=== PATIENT | female | born 1945 | race Hispanic/Latino ===

== ENCOUNTER 2018-08-19 21:38 | Emergency (ER) | payer OTHER ==
[2018-08-19 22:11] LABS: APPEARANCE,URINE Clear (CLEAR); BILIRUBIN,URINE Negative (NEGATIVE); COLOR,URINE Yellow (YELLOW); GLUCOSE, URINE (UA) Negative (NEGATIVE); KETONES,URINE Negative (NEGATIVE); LEUKOCYTE ESTERASE ,URINE Negative (NEGATIVE); NITRATE,URINE Negative (NEGATIVE); OCCULT BLOOD,URINE Trace (NEGATIVE); PROTEIN,URINE Negative (NEGATIVE); UROBILINOGEN,URINE 0.2 mg/dL (0.2-1.0)
[2018-08-19 22:16] LABS: RAPID GROUP A STREP NEGATIVE (NEGATIVE)
[2018-08-19] MEDS ORDERED: IPRATROPIUM/ALBUTEROL SULFATE 3 ML SOLUTION IH ONE (22:16)
[2018-08-19] MEDS ORDERED: ACETAMINOPHEN EXTRA STRENGTH 500 MG TABLET ONE (22:19)
[2018-08-19] MEDS ORDERED: SODIUM CHLORIDE 0.9% 1000ML 2,000 ML IV ONE (22:19)
[2018-08-19 22:21] LABS: RBC,URINE 0-1 /HPF (0-1); WBC,URINE 0-1 /HPF (0-1)
[2018-08-19 22:21] LABS: BASOPHILS % (AUTO) 0.3 % (0.0-5.0); EOSINOPHILS % (AUTO) 0.7 % (0.0-8.0); HEMATOCRIT 37.4 % (36-48); LYMPHOCYTES % (AUTO) 12.5 % (21.0-51.0); MEAN CORPUSCULAR HEMOGLOBIN 32.3 pg (27.0-33.0); MEAN CORPUSCULAR HGB CONC 33.7 g/dL (32.0-36.0); MEAN CORPUSCULAR VOLUME 95.8 fL (79-99); MONOCYTES % (AUTO) 11.5 % (3.0-13.0); PLATELET COUNT (AUTO) 296 K/uL (130-400); RED BLOOD CELL COUNT(AUTO) 3.91 MIL/uL (4.00-5.50); RED CELL DISTRIBUTION WIDTH 13.5 % (11.0-15.5); WHITE BLOOD COUNT (AUTO) 12.2 K/uL (4.8-10.8)
[2018-08-19 22:22] LABS: BACTERIA,URINE None Seen /HPF (None Seen); SQUAMOUS EPITHELIAL CELL,UR 0-2 /HPF (0-2)
[2018-08-19 22:26] LABS: CARBON DIOXIDE 25 mmol/L (21-32); CHLORIDE 105 mmol/L (101-111); GLOMERULAR FILTR. RATE CALC 58 mL/min (>60); GLUCOSE,RANDOM 121 mg/dL (70-105); POTASSIUM 3.6 mmol/L (3.5-5.1); SODIUM SERUM 141 mmol/L (136-145); UREA NITROGEN, BLOOD 17 mg/dL (7-18)
[2018-08-19 22:37] LABS: ALANINE AMINOTRANSFERASE 40 U/L (12-78); ALBUMIN 3.1 g/dL (3.5-5.0); ASPARTATE AMINOTRANSFERASE 45 U/L (10-37); BILIRUBIN,TOTAL 0.7 mg/dL (0.2-1.0); CREATINE KINASE, TOTAL 99 U/L (21-232); MYOGLOBIN 28 ng/mL (10-92); TROPONIN I < 0.04 ng/mL (0.00-0.06)
[2018-08-19] MEDS ORDERED: METHYLPREDNISOLONE SOD SUCC 125MG/2ML VIAL ONE (23:16)
[2018-08-19] MEDS ORDERED: CEFTRIAXONE SODIUM 1 GM ONE (23:26)
[2018-08-19] MEDS ORDERED: SODIUM CHLORIDE 0.9% 500ML 500 ML IV ONE (23:26)
== END 2018-08-20 01:32 | disposition home or self-care (01) ==
LOC: EDH 21:38
DX: J20.9 Acute bronchitis, unspecified (principal); I10 Essential (primary) hypertension; E78.5 Hyperlipidemia, unspecified; K21.9 Gastro-esophageal reflux disease without esophagitis
CPT/HCPCS: 36415; 71045; 80053; 81001; 82550; 83605; 83874; 84484; 85025; 87040 ×2; 87088; 87804 ×2; 87880; 93005; 94640; 96374; 96375; 99284; J0696; J2930; J7030; J7040

== ENCOUNTER → 2019-02-22 | Outpatient (CLI) | payer OTHER ==
[~2019-02-22] MED LIST: ALBU8.5H8 IH; AMLO5TAB9 PO; APIX5TAB PO; DOXY100T2 PO; MONT10TA24 PO; PANT40TA25 PO; PRAV40TA3 PO; PRED10B PO
[2019-02-22 15:08] LABS: CREATININE 0.9 mg/dL (0.5-1.5)
== END | disposition home or self-care (01) ==
LOC: LAB 14:09
PROVIDERS: ATTEND Internal Medicine
DX: J44.9 Chronic obstructive pulmonary disease, unspecified (principal); J91.8 Pleural effusion in other conditions classified elsewhere
CPT/HCPCS: 36415; 82565; 84520

== ENCOUNTER 2021-04-24 10:45 | Emergency (ER) | payer OTHER ==
[~2021-04-24] VITALS: Ht 154.9 cm; Wt 88.9 kg
[~2021-04-24 10:45] MED LIST changes: +AMLO-257 PO; -AMLO5TAB9 PO; -MONT10TA24 PO; +MONT10TA32 PO; -PANT40TA25 PO; +PANT40TA54 PO
[2021-04-24 10:46] VITALS: BP 152/73
[2021-04-24] MEDS ORDERED: PROMETHAZINE HCL 25 MG/ML 1ML AMPULE IM ONE ×2 (10:46→13:30)
[2021-04-24] MEDS ORDERED: PRAV20TA4 PO (11:53)
[2021-04-24] MEDS ORDERED: PANT20TA18 PO (11:53)
[2021-04-24] MEDS ORDERED: CETI10TA57 PO (11:53)
[2021-04-24] MEDS ORDERED: OLME-7 PO (11:53)
[2021-04-24] MEDS ORDERED: MEPERIDINE-PF 25 MG/ML SYG ONE (13:18)
[2021-04-24] MEDS ORDERED: MEPERIDINE-PF 25 MG/ML SYG IM ONE (13:30)
[2021-04-24] MEDS ORDERED: ACET1TAB25 PO (13:30)
== END 2021-04-24 14:22 | disposition home or self-care (01) ==
LOC: EDH 10:45
DX: S30.0XXA Contusion of lower back and pelvis, initial encounter (principal); S39.012A Strain of muscle, fascia and tendon of lower back, initial encounter; I10 Essential (primary) hypertension; E78.00 Pure hypercholesterolemia, unspecified; Z79.01 Long term (current) use of anticoagulants; Z79.899 Other long term (current) drug therapy; W01.0XXA Fall on same level from slipping, tripping and stumbling without subsequent striking against object, initial encounter; Y93.89 Activity, other specified; Y92.89 Other specified places as the place of occurrence of the external cause; Y99.8 Other external cause status
CPT/HCPCS: 72192; 73502; 96372 ×2; 99284; J2175; J2550

== ENCOUNTER 2022-10-04 07:33 | Emergency (ER) | payer OTHER ==
[~2022-10-04] VITALS: Ht 160 cm; Wt 89.8 kg
[~2022-10-04 07:33] MED LIST changes: +ACET-2079 PO; -ALBU8.5H8 IH; -APIX5TAB PO; +CETI10TA57 PO; -DOXY100T2 PO; +MONT-39 PO; -MONT10TA32 PO; +OLME-7 PO; +PANT20TA18 PO; -PANT40TA54 PO; +PRAV20TA4 PO; -PRAV40TA3 PO; -PRED10B PO
[2022-10-04] MEDS ORDERED: MECLIZINE HCL 25 MG TABLET PO ONE (08:00)
[2022-10-04] MEDS ORDERED: DIPH,PERTUSS(ACELL),TET VAC/PF 0.5 ML VIAL IM ONE (08:00)
[2022-10-04] MEDS ORDERED: ONDANSETRON ODT 4MG TAB SL ONE (08:00)
[2022-10-04 09:14] LABS: BASOPHILS % (AUTO) 0.3 % (0.0-5.0); EOSINOPHILS % (AUTO) 0.1 % (0.0-8.0); HEMATOCRIT 40.4 % (36-48); LYMPHOCYTES % (AUTO) 5.6 % (21.0-51.0); MEAN CORPUSCULAR HEMOGLOBIN 31.8 pg (27.0-33.0); MEAN CORPUSCULAR HGB CONC 33.9 g/dL (32.0-36.0); MEAN CORPUSCULAR VOLUME 93.7 fL (79-99); MONOCYTES % (AUTO) 3.5 % (3.0-13.0); NEUTROPHILS % (AUTO) 90.2 % (40.0-77.0); PLATELET COUNT (AUTO) 224 K/uL (130-400); RED BLOOD CELL COUNT(AUTO) 4.31 MIL/uL (4.00-5.50); RED CELL DISTRIBUTION WIDTH 13.2 % (11.0-15.5); WHITE BLOOD COUNT (AUTO) 13.6 K/uL (4.8-10.8)
[2022-10-04 09:26] LABS: CREATININE 0.9 mg/dL (0.5-1.5); POTASSIUM 3.9 mmol/L (3.5-5.1)
[2022-10-04] MEDS ORDERED: LIDOCAINE HCL 1% 20 ML VIAL ONE (09:27)
[2022-10-04 09:30] LABS: ALBUMIN 3.6 g/dL (3.5-5.0); TOTAL PROTEIN, SERUM 7.2 g/dL (6.0-8.3)
[2022-10-04] MEDS ORDERED: LIDOCAINE HCL 1% 20 ML VIAL IV SCH (09:30)
[2022-10-04] MEDS ORDERED: LIDOCAINE 1%-EPI 1:100,000 20 ML VIAL IJ SCH (09:30)
[2022-10-04] MEDS ORDERED: LIDOCAINE HCL 1% 20 ML VIAL INJ ONE (09:30)
[2022-10-04] MEDS ORDERED: TRAM50TA4 PO (09:45)
[2022-10-04] MEDS ORDERED: NAPR-1180 PO (09:45)
[2022-10-04 09:50] VITALS: BP 144/66
== END 2022-10-04 10:06 | disposition home or self-care (01) ==
LOC: EDH 07:33
DX: S01.112A Laceration without foreign body of left eyelid and periocular area, initial encounter (principal); S20.212A Contusion of left front wall of thorax, initial encounter; I10 Essential (primary) hypertension; E78.00 Pure hypercholesterolemia, unspecified; Z79.899 Other long term (current) drug therapy; Z98.890 Other specified postprocedural states; W06.XXXA Fall from bed, initial encounter; Y93.89 Activity, other specified; Y92.89 Other specified places as the place of occurrence of the external cause; Y99.8 Other external cause status
CPT/HCPCS: 12013; 36415; 70450; 71101; 72125; 80053; 85025; 90471; 90715; 93005

== ENCOUNTER → 2023-01-20 | Outpatient (CLI) | payer OTHER ==
[~2023-01-20] MED LIST changes: +NAPR-1180 PO; +TRAM50TA4 PO
== END | disposition home or self-care (01) ==
LOC: RAH 10:48
PROVIDERS: ATTEND Physical Medicine & Rehabilitation
DX: M79.604 Pain in right leg (principal); M79.89 Other specified soft tissue disorders
CPT/HCPCS: 93971